=== PATIENT | female | born 1985 | race Caucasian/White ===

== ENCOUNTER 2019-07-17 15:05 | Inpatient (IN) ==
[2019-07-17] MEDS ORDERED: OXYTOCIN 20 UNITS in RINGER'S SOLUTION,LACTATED 1,000 ML IV ONE (15:07)
[2019-07-17] MEDS ORDERED: RINGER'S SOLUTION,LACTATED 1,000 ML IV PRN (15:07)
[2019-07-17] MEDS ORDERED: ceFAZolin SODIUM/DEXTROSE,ISO 2 GM/50 ML BAG IV ONE (15:07)
[2019-07-17] MEDS ORDERED: LABETALOL HCL 5 MG/ML VIAL IV STA (15:08)
[2019-07-17] MEDS ORDERED: CALCIUM GLUCONATE 4.65 MEQ/10 ML VIAL IV PRN (15:10)
[2019-07-17] MEDS ORDERED: DIAZEPAM 5 MG/ML SYRG IV PRN (15:10)
[2019-07-17] MEDS ORDERED: MAGNESIUM SULFATE IN WATER 50 ML, MAGNESIUM SULFATE IN WATER 50 ML IV ONE ×2 (15:10)
[2019-07-17] MEDS ORDERED: MAGNESIUM SULFATE IN WATER 1,000 ML IV SCH (15:15)
[2019-07-17] MEDS ORDERED: ceFAZolin SODIUM 1 GM VIAL IV PRN (15:30)
[2019-07-17] MEDS ORDERED: RINGER'S SOLUTION,LACTATED 1,000 ML IV ONE (16:34)
--- NOTE | 2019-07-17 16:37 | ANES ---
Anesthesia Pre Procedure Eval Vitals/Labs: Last Vital Signs Temp 36.7 C 07/17/19 15:50 Pulse 96 07/17/19 15:50 Resp 16 07/17/19 15:50 BP 146/72 H 07/17/19 15:50 Pulse Ox 98 07/17/19 15:50 HOME MEDICATIONS Vits96/Iron Fum/Folic [ S] 1 tab PO DAILY 07/08/19 [Last Taken 07/16/19 20:00] Aspirin 81 mg PO DAILY 07/17/19 [Last Taken 07/16/19 20:00] Allergies/Adverse Reactions: Allergies Allergy/AdvReac Type Severity Reaction Status Date / Time No Known Allergies Allergy Verified 07/17/19 15:11 - Planned Procedure Planned Procedure: Repeat Section with poss abdominal scar r Medication List Reviewed:: Yes Allergies Verified: Yes Medical History (Last Reviewed 07/17/19 @ 16:36 by Enio Chase CRNA) History of pre-eclampsia (Chronic) Appendicitis Onset Date: ~2010 Gestational [-induced] hypertension without significant proteinuria, third trimester Onset Date: ~06/2016 Pre-eclampsia Onset Date: ~09/2014 Surgical History (Last Reviewed 07/17/19 @ 16:36 by Enio Chase CRNA) Previous section (Chronic) delivery delivered Onset Date: ~07/2016 H/O wisdom tooth extraction Onset Date: ~2001 History of appendectomy Onset Date: ~2010 History of tonsillectomy Onset Date: ~1985 Family History (Last Reviewed 07/17/19 @ 16:36 by Enio Chase CRNA) Grandmother , maternal grandmother, colon cancer Cancer Grandmother , paternal grandmother Diabetes Hypertension Grandfather , M.I. maternal grandfather Myocardial infarction Grandfather , paternal grandfather Hypertension - Family Anesthesia History Family History:: no untoward family reactions to anesthesia, no familial bleeding tendencies, no family history of clotting disorders, no family history of premature - Airway/Neck/Teeth Within Normal Limits:: Yes Teeth Condition: intact Neck Exam: full range of motion Mallampatti Score: 3 Thyromental (T-M) distance: > 6 cm Mandibulo Hyoid distance: > 3 cm - Respiratory Respiratory Physical: lungs clear Smoking Status: Never smoker Sleep Apnea currently treated: No Sleep Apnea by current assessment: No - Cardiovascular Tolerate Activity: Fair Heart Sounds: S1 & S2, Regular - Anesthesia Assessment and Plan ASA Class: PS, II, E Anesthesia Type Plan: Block - Bilateral TAP block for post op pain relief, Spi nal
[2019-07-17 16:43] LABS: Cocaine Ur Negative (NEGATIVE); Urine Barbiturate Negative (NEGATIVE); Urine Benzodiazepines Negative (NEGATIVE); Urine Opiates Negative (NEGATIVE); Urine PCP Negative (NEGATIVE); Urine THC Negative (NEGATIVE)
[2019-07-17] MEDS ORDERED: BUPIVACAINE HCL/EPINEPHRINE 50 ML VIAL IJ ONE (17:45)
[2019-07-17] MEDS ORDERED: ceFAZolin SODIUM 1 GM VIAL ONE (18:31)
[2019-07-17] MEDS ORDERED: BISACODYL 10 MG SUPP.RECT RC PRN (20:39)
[2019-07-17] MEDS ORDERED: SIMETHICONE 80 MG TAB.CHEW PO PRN (20:39)
[2019-07-17] MEDS ORDERED: ONDANSETRON HCL/PF 2 MG/ML VIAL IV PRN (20:39)
[2019-07-17] MEDS ORDERED: SENNOSIDES 8.6 MG TABLET PO PRN (20:39)
--- NOTE | 2019-07-17 20:50 | OR ---
Operative Report - Dictated Report Narrative: Indication: 33-year-old 3 para 2 at 37-3/7 weeks with chronic hype rtension exacerbated in the severe range admitted for repeat low transverse section. Patient further desires sterilization via bilateral salpingectomy. status: Planned Pre Operative Diagnosis: 37-3/7-week intrauterine . Prior section x2. Chronic hypertension with exacerbation in the severe range. Desires permanent sterilization. Post Operative Diagnosis: Same. Procedure: Repeat low transverse section. Abdominal scar revision - 16cm. Bilateral salpingectomy. Surgeon: Alda Joe DO General Utility Maintenance Repairer: OR Staff Anesthesia: Spinal, TAP block Estimated Blood Loss: 200 mL Urine Output: 300 mL clear urine Fluids Replacement: 1000 mL of crystalloid Drains: Flaherty to gravity Surgical Complications: None Specimens: Placenta. Fallopian tubes. Findings: Female born at 1924 on 07/17/2020 with Apgars 9 and 10, weighing 3515 g in cephalic presentation. Normal uterus, tubes, ovaries Technique: The patient was taken to the operating room and placed in dorsal supine position with a left lateral tilt. After adequate spinal anesthesia, flaherty catheter inserted, SCDs placed, and 2 g of Ancef given preoperatively, the previous scar was excised in an elliptical fashion and the abdominal cavity was entered using sharp and blunt dissection. A transverse incision was made in the lower uterine segment and extended laterally and upwardly with digital traction. Clear fluid was noted upon amniotomy. The infant was delivered easily. After approximately 30 seconds, the cord was clamped and cut and infant was handed off to awaiting prosthetic aides teacher. The placenta was allowed to deliver spontaneously. The uterus was cleared of clot and debris. Uterine incision was closed with 0 Vicryl using a running stitch. A second imbricating layer was placed. Small bleeding in the midline of incision required a [id number] suture. Excellent hemostasis was noted. The right fallopian tube was identified and followed out to the fimbriated end. Using a hand-held LigaSure device, the tube was transected approximately 2 cm from the cornual region and along the entire mesosalpinx. The exact same procedure was carried out on the left side. The fallopian tubes were sent to pathology for gross identification. The pelvis was irrigated with sterile saline. Excellent hemostasis was assured. The peritoneum was closed with a running 3-0 Monocryl. The same suture was used to approximate the rectus and pyramidalis muscles. The fascia was closed with a running 0 Vicryl. The subcutaneous layer was closed with a running 3-0 Monocry l. The same suture was used to approximate the subdermal layer. The skin was closed with a running 4-0 Monocryl and Dermabond. Sponge, lap, needle, and instrument count were correct x 2. Disposition: To post anesthesia care unit in good condition History for MU History for MU Definition: * The number of deliveries resulting in a live the patient experienced prior to current hospitalization * The previous delivery of live twins or any live multiple gestation is considered one live event. *If primagravida or nulliparous is documented select zero for the number of previous live births. Live Events: Live Events: 2
--- NOTE | 2019-07-17 20:58 | ANES ---
Post Anesthesia Discharge - Transfer of Care Transfer of Care handoff given to nurse: Yes - Discharge from PACU Discharge from PACU when meets criteria: Yes - Comfortable on admission.
--- NOTE | 2019-07-17 20:59 | ANES ---
Anesthesia Procedure Note Procedure Note: ANESTHESIA PROCEDURE NOTE Date of Procedure: 07/17/2019 Time of procedure: 2034. Performed by: JERILYN Samuel CRNA, MSN Commercial Sales Manager: Bertha Mac RN. Preprocedure diagnosis: Post section pain. Post procedure diagnosis: Same. Procedure: Bilateral TAP block Indications: Post section pain relief. Findings: See below. Details of the procedure: The patient was brought to PACU and placed in the supine position. The patient was prepped with chlorhexidine and using u ltrasound guidance the 3 abdominal muscular planes were identified and lidocaine 1% was infiltrated to the skin of the intended injection site. Under ultrasound guidance the the internal oblique and transverse this abdominis muscle layers were approached with visualization of a 4 inch block needle until the tip of the needle rested in the plane between the muscles. 25 mL bupivacaine 0.25% with 1-200,000 epinephrine was injected and the procedure was repeated on the other side. Please see radiology/ultrasound report for details and images of the procedure. EBL: 0 Fluids: N/A. Specimen: N/A. Post procedure condition: The patient tolerated the procedure well. No complications were noted. Thank you for this consultation. Enio Chase CRNA, ARNP, MSN
--- NOTE | 2019-07-17 21:00 | ANES ---
Post Anesthesia Assessment - Vital Signs Vitals: Last Vital Signs Temp 36.6 C 07/17/19 20:50 Pulse 75 07/17/19 20:50 Resp 12 07/17/19 20:50 BP 123/76 07/17/19 20:50 Pulse Ox 99 07/17/19 20:50 Airway Patency: Normal - Mental Status Level Of Consciousness: Awake, Alert, Appropriate - Pain Level Pain Score: 0 - N/V Assessment Nausea/Vomiting Presence: None Dehydration:: No
[2019-07-17] MEDS: DOCUSATE SODIUM 100 MG CAPSULE PO SCH (21:35)
[2019-07-17] MEDS: IBUPROFEN 800 MG TABLET PO PRN (21:35)
[2019-07-17] MEDS: oxyCODONE HCL/ACETAMINOPHEN 1 TAB TABLET PO PRN (21:35)
[2019-07-18] MEDS: oxyCODONE HCL/ACETAMINOPHEN 1 TAB TABLET PO PRN ×7 (00:59→20:23)
[2019-07-18] MEDS: ENOXAPARIN SODIUM 40 MG/0.4 ML SYRG SC SCH (04:33)
[2019-07-18] MEDS: IBUPROFEN 800 MG TABLET PO PRN ×3 (04:33→17:50)
--- NOTE | 2019-07-18 09:21 | PN ---
Subjective - Date and Time Seen Date: 07/18/19 Time: Objective - Vitals Vitals: Last Vital Signs Temp 36.4 C 07/18/19 03:00 Pulse 79 07/18/19 03:00 Resp 18 07/18/19 03:00 BP 122/58 07/18/19 03:00 Pulse Ox 98 07/18/19 03:00 Patient denies complaints. Specifically denies headache, visual changes, or epigastric pain. Tolerating regular diet. Ambulating without difficulty. Pain well controlled. Lochia wnl. Abdomen - soft, appropriately tender Incision -clean, dry, intact uterus - firm, at umbilicus -1 No calf tenderness, DTR-2/4, no clonus. Impression: Post op day #1 s/p repeat section. Bilateral salpingectomy. Abdominal scar revision. Chronic hypertension with exacerbation and severe range-resolved. Plan: Continue routine post-operative/ care. Continue to monitor blood pressures closely. Cauti Physician Documentation - Urinary Catheter Management Urethral (Alfaro) Date of Insertion: 07/17/19 Time of Insertion: 19:05
[2019-07-18] MEDS ORDERED: RHO(D) IMMUNE GLOBULIN 1,500 UNIT SYRINGE IM ONE (10:09)
[2019-07-18] MEDS: DOCUSATE SODIUM 100 MG CAPSULE PO SCH ×2 (11:04→20:23)
[2019-07-19] MEDS: oxyCODONE HCL/ACETAMINOPHEN 1 TAB TABLET PO PRN ×5 (01:17→20:30)
[2019-07-19] MEDS: IBUPROFEN 800 MG TABLET PO PRN ×4 (01:18→20:30)
[2019-07-19] MEDS: ENOXAPARIN SODIUM 40 MG/0.4 ML SYRG SC SCH (04:59)
[2019-07-19] MEDS: DOCUSATE SODIUM 100 MG CAPSULE PO SCH ×3 (07:29→20:31)
--- NOTE | 2019-07-19 12:31 | PN ---
Subjective - Date and Time Seen Date: 07/19/19 Time: 12:30 Objective - Vitals Vitals: Last Vital Signs Temp 36.1 C 07/19/19 08:13 Pulse 81 07/19/19 08:13 Resp 16 07/19/19 08:13 BP 130/82 07/19/19 08:13 Pulse Ox 98 07/19/19 08:13 Patient denies complaints. Ambulating well. Tolerating regular diet. Pain well controlled. Lochia wnl. Abdomen - soft, appropriately tender Incision -clean, dry, intact uterus - firm, at umbilicus -2 no calf tenderness Impression: Post op day #2 s/p repeat section. Bilateral salpingectomy. Abdominal scar revision. Chronic hypertension-stable Plan: Continue routine post-operative/ care. Monitor closely for preeclampsia or return of severe features. Cauti Physician Documentation - Urinary Catheter Management Urethral (Alfaro) Date of Insertion: 07/17/19 Time of Insertion: 19:05 Date of Removal: 07/18/19 Time of Removal: 07:30
[2019-07-20] MEDS: oxyCODONE HCL/ACETAMINOPHEN 1 TAB TABLET PO PRN ×5 (03:03→23:31)
[2019-07-20] MEDS: IBUPROFEN 800 MG TABLET PO PRN ×4 (03:04→23:31)
[2019-07-20] MEDS: ENOXAPARIN SODIUM 40 MG/0.4 ML SYRG SC SCH (05:15)
[2019-07-20] MEDS: DOCUSATE SODIUM 100 MG CAPSULE PO SCH ×2 (08:02→20:44)
--- NOTE | 2019-07-20 15:03 | PN ---
Subjective - Date and Time Seen Date: 07/20/19 Time: 15:01 Objective - Vitals Vitals: Last Vital Signs Temp 36.6 C 07/20/19 10:35 Pulse 100 07/20/19 10:35 Resp 18 07/20/19 10:35 BP 115/65 07/20/19 10:35 Pulse Ox 96 07/20/19 10:35 Patient denies complaints. Ambulating without difficulty. Tolerating regular diet. Pain well controlled. Lochia wnl. Abdomen - soft, appropriately tender Incision -clean, dry, intact uterus - firm, at umbilicus -3 no calf tenderness Impression: Post op day #3 s/p repeat section. Bilateral salpingectomy. Abdominal scar revision. Chronic hypertension with exacerbation-resolved. Plan: Routine discharge instructions. Preeclampsia precautions. Discharged home with follow-up in 1 week for blood pressure and incision check. Cauti Physician Documentation - Urinary Catheter Management Urethral (Alfaro) Date of Insertion: 07/17/19 Time of Insertion: 19:05 Date of Removal: 07/18/19 Time of Removal: 07:30
[2019-07-20 19:09] VITALS: BP 135/71
== END 2019-07-20 23:55 | disposition home or self-care (01) | DRG 784 ==
LOC: OB 15:05
PROVIDERS: ADMIT Obstetrics & Gynecology; ATTEND Obstetrics & Gynecology
CPT/HCPCS: 59025; 80307; 85460; 88302; 88307; J2790